=== PATIENT | female | born 1955 | race Caucasian/White ===

== ENCOUNTER → 2017-05-10 | Outpatient (CLI) | payer OTHER ==
[~2017-05-10] MED LIST: CALCIUM 600 +1 EAC3 PO; EFFEXOR XR150 MG PO; MULTI-VITAMIN1 EACH PO; VITAMIN C1000 MG PO; XANAX0.25 MG PO
== END | disposition short-term general hospital (02) ==
LOC: CLSURG 05-03 02:17
DX: Z48.815 Encounter for surgical aftercare following surgery on the digestive system (principal); Z90.49 Acquired absence of other specified parts of digestive tract